=== PATIENT | male | born 1960 | race Caucasian/White ===

== ENCOUNTER 2021-01-30 20:38 | Inpatient (IN) | payer SELFPAY ==
[~2021-01-30] VITALS: Ht 177.8 cm; Wt 154.5 kg
[2021-01-30] MEDS ORDERED: SODIUM CHLORIDE 0.9% 1,000ML IVBOLUS ONE (21:00)
[2021-01-30 21:36] LABS: BASOPHILS % (AUTO) 0 % (0-1); EOSINOPHILS % (AUTO) 0 % (1-7); LYMPHOCYTES % (AUTO) 6 % (22-44); MEAN CORPUSCULAR HEMOGLOBIN 31.3 pg (27.5-34.5); MEAN CORPUSCULAR HGB CONC 34.5 g/dL (33.2-36.2); MEAN PLATELET VOLUME 6.2 fL (7.4-10.4); MONOCYTES % (AUTO) 8 % (2-9); NEUTROPHILS % (AUTO) 85 % (42-75); PLATELET COUNT 445 x10^3/uL (130-400); RED CELL DISTRIBUTION WIDTH 14.3 % (9.4-14.8)
[2021-01-30 21:48] LABS: ALBUMIN 1.7 g/dL (3.4-5.0); ANION GAP 9 mmol/L (5-15); CALCIUM 7.8 mg/dL (8.5-10.1); CHLORIDE 85 mmol/L (98-107); CREATININE 1.44 mg/dL (0.7-1.3)
--- NOTE | 2021-01-30 22:07 | NUR ---
Pt ambulatory to room from lobby at this time.
[2021-01-30] MEDS ORDERED: PIPERACILLIN/TAZO 4.5 GM in DEXTROSE 5% 100 ML IVPB ONE (22:30)
[2021-01-30] MEDS ORDERED: VANCOMYCIN PER PHARMACY MC PRN (22:30)
[2021-01-30] MEDS ORDERED: SODIUM CHLORIDE 0.9% 1,000 ML IV ONE (22:30)
[2021-01-30] MEDS ORDERED: OMNIPAQUE 350 MG/ML, 100ML BOTTLE ONE (23:00)
[2021-01-30] MEDS ORDERED: VANCOMYCIN 3,000 MG in SODIUM CHLORIDE 0.9% 500 ML IV ONE (23:00)
[2021-01-31] MEDS ORDERED: VANCOMYCIN PER PHARMACY MC SCH
[2021-01-31] MEDS ORDERED: ONDANSETRON 2MG/ML, 2ML IV PRN
[2021-01-31] MEDS ORDERED: MELATONIN 5 MG TABLET PO PRN
[2021-01-31] MEDS ORDERED: LABETALOL 5MG/ML, 20ML IVPush PRN
[2021-01-31] MEDS ORDERED: PHARMACY MAY ADJ FOR RENAL FX MC SCH
[2021-01-31] MEDS ORDERED: PHARMACOKINETIC MONITORING MC PRN (00:30)
[2021-01-31] MEDS: ENOXAPARIN 40 MG/0.4 ML SQ SCH (01:29)
[2021-01-31 01:30] VITALS: BP 106/69
[2021-01-31 02:19] LABS: ANION GAP 9 mmol/L (5-15); CALCIUM 7.7 mg/dL (8.5-10.1); CHLORIDE 87 mmol/L (98-107); CREATININE 1.31 mg/dL (0.7-1.3)
[2021-01-31 04:37] LABS: BASOPHILS % (AUTO) 0 % (0-1); EOSINOPHILS % (AUTO) 0 % (1-7); LYMPHOCYTES % (AUTO) 7 % (22-44); MEAN CORPUSCULAR HEMOGLOBIN 31.5 pg (27.5-34.5); MEAN CORPUSCULAR HGB CONC 33.9 g/dL (33.2-36.2); MEAN PLATELET VOLUME 6.1 fL (7.4-10.4); MONOCYTES % (AUTO) 7 % (2-9); NEUTROPHILS % (AUTO) 85 % (42-75); PLATELET COUNT 339 x10^3/uL (130-400); RED BLOOD COUNT 4.38 x10^6/uL (4.38-5.82); RED CELL DISTRIBUTION WIDTH 14.6 % (9.4-14.8)
[2021-01-31 04:50] LABS: ANION GAP 8 mmol/L (5-15); CALCIUM 7.2 mg/dL (8.5-10.1); CHLORIDE 89 mmol/L (98-107); CREATININE 1.27 mg/dL (0.7-1.3)
[2021-01-31 06:04] VITALS: BP 95/60
[2021-01-31] MEDS: CEFEPIME 2 GM in DEXTROSE 5% 100 ML IV SCH ×3 (06:27→21:38)
[2021-01-31] MEDS ORDERED: LACTATED RINGERS 1,000 ML IV SCH (06:30)
[2021-01-31] MEDS: INSULIN REGULAR 100 UNITS/ML, 3ML VIAL SQ-INSULIN SCH ×4 (07:00→16:00)
[2021-01-31 07:32] VITALS: BP 103/68
[2021-01-31 08:28] LABS: POTASSIUM,URINE RANDOM 43 mmol/L
[2021-01-31 08:31] LABS: CHLORIDE,URINE RANDOM < 10 mmol/L; SODIUM,URINE RANDOM < 5 mmol/L
[2021-01-31 09:40] LABS: BASOPHILS % (AUTO) 1 % (0-1); EOSINOPHILS % (AUTO) 0 % (1-7); LYMPHOCYTES % (AUTO) 7 % (22-44); MEAN CORPUSCULAR HEMOGLOBIN 31.2 pg (27.5-34.5); MEAN PLATELET VOLUME 6.3 fL (7.4-10.4); MONOCYTES % (AUTO) 11 % (2-9); NEUTROPHILS % (AUTO) 81 % (42-75); PLATELET COUNT 329 x10^3/uL (130-400); RED CELL DISTRIBUTION WIDTH 14.3 % (9.4-14.8)
[2021-01-31 09:52] LABS: CALCIUM 7.1 mg/dL (8.5-10.1); CHLORIDE 92 mmol/L (98-107)
[2021-01-31 09:52] LABS: MICROSCOPIC NOT IND
[2021-01-31 09:55] LABS: ANION GAP 5 mmol/L (5-15); CREATININE 1.22 mg/dL (0.7-1.3)
[2021-01-31] MEDS: SODIUM CHLORIDE 0.9% 1,000 ML IV SCH ×2 (14:15)
[2021-01-31 15:04] VITALS: BP 106/65
[2021-01-31] MEDS: ACETAMINOPHEN 325 MG TABLET PO PRN (17:30)
[2021-01-31] MEDS: VANCOMYCIN 2,000 MG in SODIUM CHLORIDE 0.9% 500 ML IV SCH (18:22)
[2021-01-31] MEDS ORDERED: CALCIUM CARBONATE 500 MG TAB.CHEW PO PRN (18:30)
[2021-01-31 20:19] VITALS: BP 98/62
[2021-02-01 00:32] VITALS: BP 106/65
[2021-02-01] MEDS: ENOXAPARIN 40 MG/0.4 ML SQ SCH ×2 (00:50→18:05)
[2021-02-01] MEDS: CEFEPIME 2 GM in DEXTROSE 5% 100 ML IV SCH ×3 (05:33→21:43)
[2021-02-01] MEDS ORDERED: PANTOPRAZOLE 40 MG IV IVPush SCH (09:00)
[2021-02-01] MEDS: SUCRALFATE 1 GM/10 ML UDC PO SCH ×3 (10:37→21:43)
[2021-02-01] MEDS: VANCOMYCIN 2,000 MG in SODIUM CHLORIDE 0.9% 500 ML IV SCH (12:01)
[2021-02-01 15:17] VITALS: BP 98/57
[2021-02-01] MEDS: PANTOPRAZOLE 40MG TABLET PO SCH (18:05)
[2021-02-01] MEDS: D5%-0.2% NACL 1,000 ML IV SCH (18:29)
[2021-02-01] MEDS: ACETAMINOPHEN 325 MG TABLET PO PRN (20:14)
[2021-02-01 21:48] VITALS: BP 83/50
[2021-02-01] MEDS ORDERED: D5%-0.2% NACL 500 ML IV ONE (22:30)
[2021-02-01 23:18] VITALS: BP 84/40
[2021-02-01] MEDS ORDERED: SODIUM CHLORIDE 0.9%, 500ML IVBOLUS ONE (23:30)
[2021-02-01 23:59] VITALS: BP 109/66
[2021-02-02] MEDS: D5%-0.2% NACL 1,000 ML IV SCH (02:53)
[2021-02-02 03:00] VITALS: BP 99/67
[2021-02-02 05:50] LABS: VANCOMYCIN,TROUGH 20.9 mcg/mL (5.0-10.0)
[2021-02-02] MEDS: ENOXAPARIN 40 MG/0.4 ML SQ SCH ×2 (05:51→17:52)
[2021-02-02] MEDS: PANTOPRAZOLE 40MG TABLET PO SCH ×2 (05:52→16:30)
[2021-02-02] MEDS: CEFEPIME 2 GM in DEXTROSE 5% 100 ML IV SCH ×3 (05:52→22:23)
[2021-02-02] MEDS: SUCRALFATE 1 GM/10 ML UDC PO SCH ×4 (05:52→21:00)
[2021-02-02] MEDS: ACETAMINOPHEN 325 MG TABLET PO PRN (05:52)
[2021-02-02] MEDS: VANCOMYCIN 2,000 MG in SODIUM CHLORIDE 0.9% 500 ML IV SCH (06:36)
[2021-02-02 06:49] VITALS: BP 106/62
[2021-02-02 14:09] VITALS: BP 109/67
[2021-02-02] MEDS: morphine SULFATE 10 MG/ML, 1ML IV PRN (16:31)
[2021-02-02 20:32] VITALS: BP 91/58
[2021-02-02] MEDS: POLYETHYLENE GLYCOL 17 GM PACKET PO PRN (22:22)
[2021-02-03] MEDS: VANCOMYCIN 2,000 MG in SODIUM CHLORIDE 0.9% 500 ML IV SCH ×2 (00:02→18:32)
[2021-02-03 01:42] VITALS: BP 100/60
[2021-02-03] MEDS: morphine SULFATE 10 MG/ML, 1ML IV PRN (03:07)
[2021-02-03] MEDS: ACETAMINOPHEN 325 MG TABLET PO PRN ×3 (03:07→22:25)
[2021-02-03] MEDS: CEFEPIME 2 GM in DEXTROSE 5% 100 ML IV SCH ×3 (06:07→22:24)
[2021-02-03 06:08] LABS: BASOPHILS % (AUTO) 3 % (0-1); EOSINOPHILS % (AUTO) 5 % (1-7); LYMPHOCYTES % (AUTO) 23 % (22-44); MEAN CORPUSCULAR HEMOGLOBIN 32.4 pg (27.5-34.5); MEAN CORPUSCULAR HGB CONC 34.4 g/dL (33.2-36.2); MEAN PLATELET VOLUME 6.3 fL (7.4-10.4); MONOCYTES % (AUTO) 10 % (2-9); NEUTROPHILS % (AUTO) 59 % (42-75); PLATELET COUNT 266 x10^3/uL (130-400); RED BLOOD COUNT 3.37 x10^6/uL (4.38-5.82); RED CELL DISTRIBUTION WIDTH 14.4 % (9.4-14.8)
[2021-02-03 06:14] LABS: CHLORIDE 103 mmol/L (98-107)
[2021-02-03 06:19] LABS: ALANINE AMINOTRANSFERASE 9 U/L (12-78); ALBUMIN 1.1 g/dL (3.4-5.0); ALKALINE PHOSPHATASE 83 U/L (45-117); ANION GAP 6 mmol/L (5-15); BILIRUBIN,TOTAL 0.3 mg/dL (0.2-1.0); CALCIUM 6.7 mg/dL (8.5-10.1); CREATININE 0.98 mg/dL (0.7-1.3); TOTAL PROTEIN 5.9 g/dL (6.4-8.2)
[2021-02-03 08:45] VITALS: BP 99/62
[2021-02-03] MEDS: ENOXAPARIN 40 MG/0.4 ML SQ SCH ×2 (10:41→20:41)
[2021-02-03] MEDS: SUCRALFATE 1 GM/10 ML UDC PO SCH ×4 (10:41→20:40)
[2021-02-03] MEDS: PANTOPRAZOLE 40MG TABLET PO SCH ×2 (10:42→16:52)
[2021-02-03] MEDS: METOCLOPRAMIDE 5 MG/ML, 2ML IVPush SCH ×3 (10:42→20:41)
[2021-02-03] MEDS: POLYETHYLENE GLYCOL 17 GM PACKET PO PRN (10:46)
[2021-02-03 15:24] VITALS: BP 92/58
[2021-02-03] MEDS ORDERED: POLYETHYLENE GLYCOL 17 GM PACKET PO SCH (16:00)
[2021-02-03] MEDS: MORPHINE SULFATE 4 MG/ML, 1ML IVPush PRN (18:16)
[2021-02-03 19:46] VITALS: BP 85/49
[2021-02-04 00:47] VITALS: BP 101/61
[2021-02-04] MEDS: METOCLOPRAMIDE 5 MG/ML, 2ML IVPush SCH ×2 (03:35→08:17)
[2021-02-04] MEDS: ACETAMINOPHEN 325 MG TABLET PO PRN ×3 (03:35→20:55)
[2021-02-04] MEDS: MORPHINE SULFATE 4 MG/ML, 1ML IVPush PRN ×2 (03:36→11:43)
[2021-02-04] MEDS: CEFEPIME 2 GM in DEXTROSE 5% 100 ML IV SCH (06:13)
[2021-02-04] MEDS: PANTOPRAZOLE 40MG TABLET PO SCH ×2 (06:13→15:54)
[2021-02-04 07:45] VITALS: BP 103/58
[2021-02-04] MEDS: SUCRALFATE 1 GM/10 ML UDC PO SCH ×4 (08:17→20:55)
[2021-02-04] MEDS: POLYETHYLENE GLYCOL 17 GM PACKET PO SCH (08:17)
[2021-02-04] MEDS: ENOXAPARIN 40 MG/0.4 ML SQ SCH ×2 (08:17→20:55)
[2021-02-04] MEDS: VANCOMYCIN 2,000 MG in SODIUM CHLORIDE 0.9% 500 ML IV SCH (11:42)
[2021-02-04] MEDS ORDERED: DIPHENHYDRAMINE 25 MG CAPSULE PO PRN (13:30)
[2021-02-04] MEDS: CIPROFLOXACIN 500 MG TABLET PO SCH (14:15)
[2021-02-04 14:19] VITALS: BP 110/67
[2021-02-04 20:14] VITALS: BP 89/50
[2021-02-05 01:48] VITALS: BP 90/62
[2021-02-05] MEDS: CIPROFLOXACIN 500 MG TABLET PO SCH ×2 (01:48→14:05)
[2021-02-05] MEDS: VANCOMYCIN 2,000 MG in SODIUM CHLORIDE 0.9% 500 ML IV SCH (06:16)
[2021-02-05] MEDS: PANTOPRAZOLE 40MG TABLET PO SCH ×2 (06:22→17:01)
[2021-02-05] MEDS: SUCRALFATE 1 GM/10 ML UDC PO SCH ×4 (06:22→21:10)
[2021-02-05 08:20] VITALS: BP 109/49
[2021-02-05] MEDS: POLYETHYLENE GLYCOL 17 GM PACKET PO SCH (09:00)
[2021-02-05] MEDS: ENOXAPARIN 40 MG/0.4 ML SQ SCH ×2 (09:36→21:10)
[2021-02-05 14:00] VITALS: BP 102/55
[2021-02-05] MEDS: DIPHENHYDRAMINE 25 MG CAPSULE PO SCH ×2 (17:00→23:20)
[2021-02-05] MEDS: MORPHINE SULFATE 4 MG/ML, 1ML IVPush PRN (18:01)
[2021-02-05] MEDS: ACETAMINOPHEN 325 MG TABLET PO PRN (18:08)
[2021-02-05 20:18] VITALS: BP 104/60
[2021-02-05] MEDS ORDERED: DIPHENHYDRAMINE 50 MG CAPSULE ONE (23:14)
[2021-02-06 01:21] VITALS: BP 94/56
[2021-02-06 05:35] LABS: ALBUMIN 1.1 g/dL (3.4-5.0); ANION GAP 3 mmol/L (5-15); CALCIUM 7.2 mg/dL (8.5-10.1); CHLORIDE 107 mmol/L (98-107)
[2021-02-06 05:38] LABS: ALANINE AMINOTRANSFERASE 10 U/L (12-78); ALKALINE PHOSPHATASE 91 U/L (45-117); BILIRUBIN,TOTAL 0.3 mg/dL (0.2-1.0); CREATININE 1.06 mg/dL (0.7-1.3); TOTAL PROTEIN 6.4 g/dL (6.4-8.2)
[2021-02-06] MEDS: SUCRALFATE 1 GM/10 ML UDC PO SCH ×4 (05:56→20:13)
[2021-02-06] MEDS: DIPHENHYDRAMINE 25 MG CAPSULE PO SCH ×4 (05:57→23:36)
[2021-02-06] MEDS: PANTOPRAZOLE 40MG TABLET PO SCH ×2 (05:57→17:06)
[2021-02-06 07:08] VITALS: BP 113/69
[2021-02-06] MEDS: POLYETHYLENE GLYCOL 17 GM PACKET PO SCH (08:49)
[2021-02-06] MEDS: ENOXAPARIN 40 MG/0.4 ML SQ SCH ×2 (08:49→20:13)
[2021-02-06 10:00] LABS: BASOPHILS % (AUTO) 1 % (0-1); EOSINOPHILS % (AUTO) 5 % (1-7); LYMPHOCYTES % (AUTO) 15 % (22-44); MEAN CORPUSCULAR HEMOGLOBIN 31.3 pg (27.5-34.5); MEAN PLATELET VOLUME 6.1 fL (7.4-10.4); MONOCYTES % (AUTO) 7 % (2-9); NEUTROPHILS % (AUTO) 73 % (42-75); PLATELET COUNT 307 x10^3/uL (130-400); RED BLOOD COUNT 3.66 x10^6/uL (4.38-5.82); RED CELL DISTRIBUTION WIDTH 14.9 % (9.4-14.8)
[2021-02-06] MEDS: MORPHINE SULFATE 4 MG/ML, 1ML IVPush PRN (10:44)
[2021-02-06] MEDS: ACETAMINOPHEN 325 MG TABLET PO PRN (10:44)
[2021-02-06 14:26] VITALS: BP 116/73
[2021-02-06] MEDS: VANCOMYCIN 2,000 MG in SODIUM CHLORIDE 0.9% 500 ML IV SCH (14:29)
[2021-02-06 20:38] VITALS: BP 127/66
[2021-02-07 01:57] VITALS: BP 116/47
[2021-02-07] MEDS: DIPHENHYDRAMINE 25 MG CAPSULE PO SCH ×4 (06:30→23:16)
[2021-02-07] MEDS: PANTOPRAZOLE 40MG TABLET PO SCH ×2 (06:31→16:13)
[2021-02-07] MEDS: SUCRALFATE 1 GM/10 ML UDC PO SCH ×4 (06:31→21:45)
[2021-02-07 09:00] VITALS: BP 137/58
[2021-02-07] MEDS: POLYETHYLENE GLYCOL 17 GM PACKET PO SCH (09:00)
[2021-02-07] MEDS: ENOXAPARIN 40 MG/0.4 ML SQ SCH ×2 (10:44→21:46)
[2021-02-07 12:52] VITALS: BP 103/63
[2021-02-07 14:26] VITALS: BP 94/55
[2021-02-07 20:10] VITALS: BP 117/66
[2021-02-07] MEDS: ACETAMINOPHEN 325 MG TABLET PO PRN (21:45)
[2021-02-07] MEDS: MORPHINE SULFATE 4 MG/ML, 1ML IVPush PRN (21:46)
[2021-02-08 00:40] VITALS: BP 124/67
[2021-02-08] MEDS: VANCOMYCIN 2,000 MG in SODIUM CHLORIDE 0.9% 500 ML IV SCH (03:21)
[2021-02-08] MEDS: SUCRALFATE 1 GM/10 ML UDC PO SCH ×4 (06:09→21:53)
[2021-02-08] MEDS: DIPHENHYDRAMINE 25 MG CAPSULE PO SCH ×4 (06:09→23:09)
[2021-02-08] MEDS: PANTOPRAZOLE 40MG TABLET PO SCH ×2 (06:09→17:03)
[2021-02-08] MEDS: POLYETHYLENE GLYCOL 17 GM PACKET PO SCH (09:00)
[2021-02-08] MEDS: ENOXAPARIN 40 MG/0.4 ML SQ SCH ×2 (09:37→21:53)
[2021-02-08 09:39] VITALS: BP 105/66
[2021-02-08] MEDS ORDERED: DIPHENHYDRAMINE 50 MG CAPSULE ONE (11:04)
[2021-02-08] MEDS: ACETAMINOPHEN 325 MG TABLET PO PRN (11:37)
[2021-02-08] MEDS: MORPHINE SULFATE 4 MG/ML, 1ML IVPush PRN (11:38)
[2021-02-08 15:48] VITALS: BP 91/47
[2021-02-08 20:20] VITALS: BP 128/72
[2021-02-09 01:05] VITALS: BP 119/68
[2021-02-09] MEDS: PANTOPRAZOLE 40MG TABLET PO SCH ×2 (05:37→16:47)
[2021-02-09] MEDS: DIPHENHYDRAMINE 25 MG CAPSULE PO SCH ×4 (05:38→23:25)
[2021-02-09] MEDS: SUCRALFATE 1 GM/10 ML UDC PO SCH ×4 (07:34→20:40)
[2021-02-09 08:08] VITALS: BP 102/61
[2021-02-09 08:33] LABS: BASOPHILS % (AUTO) 1 % (0-1); EOSINOPHILS % (AUTO) 5 % (1-7); LYMPHOCYTES % (AUTO) 23 % (22-44); MEAN CORPUSCULAR HEMOGLOBIN 31.6 pg (27.5-34.5); MEAN CORPUSCULAR HGB CONC 33.6 g/dL (33.2-36.2); MEAN PLATELET VOLUME 6.4 fL (7.4-10.4); MONOCYTES % (AUTO) 10 % (2-9); NEUTROPHILS % (AUTO) 61 % (42-75); PLATELET COUNT 374 x10^3/uL (130-400); RED CELL DISTRIBUTION WIDTH 14.7 % (9.4-14.8)
[2021-02-09 08:35] LABS: CHLORIDE 108 mmol/L (98-107)
[2021-02-09 08:47] LABS: ALANINE AMINOTRANSFERASE 10 U/L (12-78); ALBUMIN 1.5 g/dL (3.4-5.0); ALKALINE PHOSPHATASE 99 U/L (45-117); ANION GAP 7 mmol/L (5-15); BILIRUBIN,TOTAL 0.4 mg/dL (0.2-1.0); CALCIUM 8.3 mg/dL (8.5-10.1); CREATININE 1.16 mg/dL (0.7-1.3)
[2021-02-09] MEDS: POLYETHYLENE GLYCOL 17 GM PACKET PO SCH (09:00)
[2021-02-09] MEDS: ENOXAPARIN 40 MG/0.4 ML SQ SCH ×2 (09:11→20:43)
[2021-02-09] MEDS: AMPICILLIN/SULBACTAM 3 GM in SODIUM CHLORIDE 0.9% 100 ML IV SCH ×2 (12:53→20:40)
[2021-02-09 13:28] VITALS: BP 108/63
[2021-02-09 19:10] VITALS: BP 106/62
[2021-02-09] MEDS: MORPHINE SULFATE 4 MG/ML, 1ML IVPush PRN (22:31)
[2021-02-09] MEDS: ACETAMINOPHEN 325 MG TABLET PO PRN (22:31)
[2021-02-10 00:28] VITALS: BP 116/67
[2021-02-10] MEDS: AMPICILLIN/SULBACTAM 3 GM in SODIUM CHLORIDE 0.9% 100 ML IV SCH ×4 (03:05→20:06)
[2021-02-10 04:12] LABS: BASOPHILS % (AUTO) 1 % (0-1); EOSINOPHILS % (AUTO) 7 % (1-7); LYMPHOCYTES % (AUTO) 28 % (22-44); MEAN CORPUSCULAR HEMOGLOBIN 31.8 pg (27.5-34.5); MEAN CORPUSCULAR HGB CONC 33.7 g/dL (33.2-36.2); MEAN PLATELET VOLUME 6.5 fL (7.4-10.4); MONOCYTES % (AUTO) 12 % (2-9); NEUTROPHILS % (AUTO) 53 % (42-75); PLATELET COUNT 325 x10^3/uL (130-400); RED BLOOD COUNT 3.11 x10^6/uL (4.38-5.82); RED CELL DISTRIBUTION WIDTH 14.9 % (9.4-14.8)
[2021-02-10 04:13] LABS: ALBUMIN 1.3 g/dL (3.4-5.0); ANION GAP 5 mmol/L (5-15); CALCIUM 7.2 mg/dL (8.5-10.1); CHLORIDE 106 mmol/L (98-107)
[2021-02-10 04:22] LABS: % IRON SATURATION 23 % (20-55); ALANINE AMINOTRANSFERASE 9 U/L (12-78); ALKALINE PHOSPHATASE 88 U/L (45-117); BILIRUBIN,TOTAL 0.3 mg/dL (0.2-1.0); CREATININE 1.31 mg/dL (0.7-1.3); IRON LEVEL 41 mcg/dL (65-175); TOTAL IRON BINDING CAPACITY 176 mcg/dL (250-450); TOTAL PROTEIN 6.3 g/dL (6.4-8.2)
[2021-02-10] MEDS: PANTOPRAZOLE 40MG TABLET PO SCH ×2 (05:09→15:58)
[2021-02-10] MEDS: DIPHENHYDRAMINE 25 MG CAPSULE PO SCH ×4 (05:09→23:43)
[2021-02-10 07:31] VITALS: BP 91/51
[2021-02-10] MEDS: POLYETHYLENE GLYCOL 17 GM PACKET PO SCH (08:16)
[2021-02-10] MEDS: ENOXAPARIN 40 MG/0.4 ML SQ SCH ×2 (08:18→20:06)
[2021-02-10] MEDS: SUCRALFATE 1 GM/10 ML UDC PO SCH ×4 (08:18→20:06)
[2021-02-10 12:36] VITALS: BP 104/65
[2021-02-10 17:07] VITALS: BP 110/62
[2021-02-10 19:28] VITALS: BP 111/67
[2021-02-11 00:50] VITALS: BP 96/60
[2021-02-11] MEDS: AMPICILLIN/SULBACTAM 3 GM in SODIUM CHLORIDE 0.9% 100 ML IV SCH ×2 (02:05→08:21)
[2021-02-11] MEDS: PANTOPRAZOLE 40MG TABLET PO SCH (05:11)
[2021-02-11] MEDS: DIPHENHYDRAMINE 25 MG CAPSULE PO SCH ×2 (05:11→11:37)
[2021-02-11 07:27] LABS: BASOPHILS % (AUTO) 1 % (0-1); EOSINOPHILS % (AUTO) 7 % (1-7); LYMPHOCYTES % (AUTO) 24 % (22-44); MEAN CORPUSCULAR HGB CONC 32.8 g/dL (33.2-36.2); MEAN PLATELET VOLUME 6.6 fL (7.4-10.4); MONOCYTES % (AUTO) 11 % (2-9); NEUTROPHILS % (AUTO) 58 % (42-75); PLATELET COUNT 330 x10^3/uL (130-400); RED BLOOD COUNT 3.22 x10^6/uL (4.38-5.82); RED CELL DISTRIBUTION WIDTH 15.1 % (9.4-14.8)
[2021-02-11 07:31] VITALS: BP 117/60
[2021-02-11 07:40] LABS: ALANINE AMINOTRANSFERASE 9 U/L (12-78); ALBUMIN 1.4 g/dL (3.4-5.0); ANION GAP 5 mmol/L (5-15); CALCIUM 7.6 mg/dL (8.5-10.1); CHLORIDE 107 mmol/L (98-107); CREATININE 1.19 mg/dL (0.7-1.3)
[2021-02-11 07:47] LABS: ALKALINE PHOSPHATASE 91 U/L (45-117); BILIRUBIN,TOTAL 0.3 mg/dL (0.2-1.0); FREE T4 (FREE THYROXINE) 0.95 ng/dL (0.76-1.46); TOTAL PROTEIN 6.6 g/dL (6.4-8.2)
[2021-02-11] MEDS: ENOXAPARIN 40 MG/0.4 ML SQ SCH (08:21)
[2021-02-11] MEDS: SUCRALFATE 1 GM/10 ML UDC PO SCH ×2 (08:21→11:37)
[2021-02-11] MEDS: POLYETHYLENE GLYCOL 17 GM PACKET PO SCH (08:26)
[2021-02-11 08:32] LABS: HCT (SEDRATE) 30.4 % (39.2-51.8)
[2021-02-11] MEDS ORDERED: AZITHROMYCIN 500 MG TABLET PO SCH (09:00)
[2021-02-11] MEDS ORDERED: AZIT500T10 PO (11:05)
[2021-02-11] MEDS ORDERED: DALBAVANCIN HCL 1,500 MG in DEXTROSE 5% 500 ML IV ONE (12:00)
[2021-02-11 14:40] VITALS: BP 105/65
== END 2021-02-11 16:10 | disposition home or self-care (01) | DRG 872 ==
LOC: ED 23:20 → EDIP 23:28 → 4EST 01-31 00:19
PROVIDERS: ADMIT Internal Medicine; ATTEND Family Medicine
DX: A41.9 Sepsis, unspecified organism (principal); L03.116 Cellulitis of left lower limb; E87.1 Hypo-osmolality and hyponatremia; Z68.41 Body mass index [BMI] 40.0-44.9, adult; N17.9 Acute kidney failure, unspecified; L97.929 Non-pressure chronic ulcer of unspecified part of left lower leg with unspecified severity; Z66 Do not resuscitate; E66.01 Morbid (severe) obesity due to excess calories; K21.9 Gastro-esophageal reflux disease without esophagitis; K59.00 Constipation, unspecified; R60.9 Edema, unspecified; I89.0 Lymphedema, not elsewhere classified; Z88.8 Allergy status to other drugs, medicaments and biological substances; Z20.822 Contact with and (suspected) exposure to COVID-19; D64.9 Anemia, unspecified; F42.9 Obsessive-compulsive disorder, unspecified; L27.0 Generalized skin eruption due to drugs and medicaments taken internally
CPT/HCPCS: 36415; 74018; 80048; 80053; 80202; 81003; 82040; 82436; 82565; 82607; 82962; 83036; 83540; 83550; 83605; 83735; 83930; 83935; 84133; 84145; 84295; 84300; 84439; 84443; 85025; 85651; 86140; 87040; 87070; 87077; 87186; 87205; 93005; 93922; 93970; 99285; G0378; J0295; J1650; J2405; J2543; J3370; Q9967; C9113; J0875; J2270; J2765; J7030; J7040; J7060; Q0163

== ENCOUNTER 2021-02-13 13:50 | Outpatient (CLI) | payer SELFPAY ==
[~2021-02-13 13:50] MED LIST: AZIT500T10 PO
== END 2021-02-13 23:59 | disposition home or self-care (01) ==
LOC: WOUND 13:50
PROVIDERS: ATTEND Internal Medicine
DX: I87.312 Chronic venous hypertension (idiopathic) with ulcer of left lower extremity (principal); L97.522 Non-pressure chronic ulcer of other part of left foot with fat layer exposed; L97.822 Non-pressure chronic ulcer of other part of left lower leg with fat layer exposed; L97.222 Non-pressure chronic ulcer of left calf with fat layer exposed; L03.116 Cellulitis of left lower limb; K21.9 Gastro-esophageal reflux disease without esophagitis; I89.0 Lymphedema, not elsewhere classified; E66.01 Morbid (severe) obesity due to excess calories; F42.9 Obsessive-compulsive disorder, unspecified; Z68.42 Body mass index [BMI] 45.0-49.9, adult; Z98.890 Other specified postprocedural states
CPT/HCPCS: 97597; 97598; 99215

== ENCOUNTER 2021-02-15 14:19 | Outpatient (CLI) | payer SELFPAY | END 2021-02-15 23:59 | disposition home or self-care (01) | LOC: WOUND 14:19 | PROVIDERS: ATTEND Internal Medicine | DX: I87.312 Chronic venous hypertension (idiopathic) with ulcer of left lower extremity (principal); L03.116 Cellulitis of left lower limb; L97.222 Non-pressure chronic ulcer of left calf with fat layer exposed; K21.9 Gastro-esophageal reflux disease without esophagitis; I89.0 Lymphedema, not elsewhere classified; E66.01 Morbid (severe) obesity due to excess calories; F42.9 Obsessive-compulsive disorder, unspecified; Z68.42 Body mass index [BMI] 45.0-49.9, adult | CPT/HCPCS: 99213 ==

== ENCOUNTER 2021-02-19 11:27 | Outpatient (CLI) | payer SELFPAY | END 2021-02-19 23:59 | disposition home or self-care (01) | LOC: WOUND 11:27 | PROVIDERS: ATTEND Internal Medicine Cardiovascular Disease | DX: I87.312 Chronic venous hypertension (idiopathic) with ulcer of left lower extremity (principal); L97.222 Non-pressure chronic ulcer of left calf with fat layer exposed; L03.116 Cellulitis of left lower limb; K21.9 Gastro-esophageal reflux disease without esophagitis; E66.01 Morbid (severe) obesity due to excess calories; F42.9 Obsessive-compulsive disorder, unspecified; Z68.42 Body mass index [BMI] 45.0-49.9, adult; Z98.890 Other specified postprocedural states | CPT/HCPCS: 99215 ==

== ENCOUNTER 2021-02-22 09:03 | Outpatient (CLI) | payer SELFPAY | END 2021-02-22 23:59 | disposition home or self-care (01) | LOC: WOUND 09:03 | PROVIDERS: ATTEND Internal Medicine | DX: I87.312 Chronic venous hypertension (idiopathic) with ulcer of left lower extremity (principal); L97.222 Non-pressure chronic ulcer of left calf with fat layer exposed; L97.822 Non-pressure chronic ulcer of other part of left lower leg with fat layer exposed; L97.522 Non-pressure chronic ulcer of other part of left foot with fat layer exposed; L03.116 Cellulitis of left lower limb; K21.9 Gastro-esophageal reflux disease without esophagitis; E66.01 Morbid (severe) obesity due to excess calories; F42.9 Obsessive-compulsive disorder, unspecified; I89.0 Lymphedema, not elsewhere classified; Z98.890 Other specified postprocedural states; Z88.8 Allergy status to other drugs, medicaments and biological substances; Z20.822 Contact with and (suspected) exposure to COVID-19; Z68.41 Body mass index [BMI] 40.0-44.9, adult | CPT/HCPCS: 97597; 97598 ==

== ENCOUNTER 2021-02-26 11:11 | Outpatient (CLI) | payer SELFPAY | END 2021-02-26 23:59 | disposition home or self-care (01) | LOC: WOUND 11:11 | PROVIDERS: ATTEND Internal Medicine Cardiovascular Disease | DX: I87.312 Chronic venous hypertension (idiopathic) with ulcer of left lower extremity (principal); L97.222 Non-pressure chronic ulcer of left calf with fat layer exposed; L97.822 Non-pressure chronic ulcer of other part of left lower leg with fat layer exposed; L97.522 Non-pressure chronic ulcer of other part of left foot with fat layer exposed; L03.116 Cellulitis of left lower limb; K21.9 Gastro-esophageal reflux disease without esophagitis; E66.01 Morbid (severe) obesity due to excess calories; F42.9 Obsessive-compulsive disorder, unspecified; Z98.890 Other specified postprocedural states; Z88.8 Allergy status to other drugs, medicaments and biological substances; Z20.822 Contact with and (suspected) exposure to COVID-19; Z68.41 Body mass index [BMI] 40.0-44.9, adult | CPT/HCPCS: 99213 ==

== ENCOUNTER 2021-03-01 10:59 | Outpatient (CLI) | payer SELFPAY | END 2021-03-01 23:59 | disposition home or self-care (01) | LOC: WOUND 10:59 | PROVIDERS: ATTEND Internal Medicine | DX: I87.312 Chronic venous hypertension (idiopathic) with ulcer of left lower extremity (principal); L97.222 Non-pressure chronic ulcer of left calf with fat layer exposed; L97.822 Non-pressure chronic ulcer of other part of left lower leg with fat layer exposed; L97.522 Non-pressure chronic ulcer of other part of left foot with fat layer exposed; L03.116 Cellulitis of left lower limb; K21.9 Gastro-esophageal reflux disease without esophagitis; E66.01 Morbid (severe) obesity due to excess calories; F42.9 Obsessive-compulsive disorder, unspecified; I89.0 Lymphedema, not elsewhere classified; Z98.890 Other specified postprocedural states; Z88.8 Allergy status to other drugs, medicaments and biological substances; Z20.822 Contact with and (suspected) exposure to COVID-19; Z68.41 Body mass index [BMI] 40.0-44.9, adult | CPT/HCPCS: 99214 ==

== ENCOUNTER 2021-03-04 12:39 | Outpatient (CLI) | payer SELFPAY | END 2021-03-04 23:59 | disposition home or self-care (01) | LOC: WOUND 12:39 | PROVIDERS: ATTEND Internal Medicine | DX: I87.312 Chronic venous hypertension (idiopathic) with ulcer of left lower extremity (principal); L97.222 Non-pressure chronic ulcer of left calf with fat layer exposed; L97.822 Non-pressure chronic ulcer of other part of left lower leg with fat layer exposed; L97.522 Non-pressure chronic ulcer of other part of left foot with fat layer exposed; L03.116 Cellulitis of left lower limb; K21.9 Gastro-esophageal reflux disease without esophagitis; E66.01 Morbid (severe) obesity due to excess calories; F42.9 Obsessive-compulsive disorder, unspecified; I89.0 Lymphedema, not elsewhere classified; Z98.890 Other specified postprocedural states; Z88.8 Allergy status to other drugs, medicaments and biological substances; Z20.822 Contact with and (suspected) exposure to COVID-19; Z68.41 Body mass index [BMI] 40.0-44.9, adult | CPT/HCPCS: 99212 ==

== ENCOUNTER → 2021-03-07 | Outpatient (CLI) | payer SELFPAY | END | disposition home or self-care (01) | LOC: WOUND 10:49 | PROVIDERS: ATTEND Podiatrist Foot & Ankle Surgery | DX: I87.312 Chronic venous hypertension (idiopathic) with ulcer of left lower extremity (principal); L97.222 Non-pressure chronic ulcer of left calf with fat layer exposed; L97.822 Non-pressure chronic ulcer of other part of left lower leg with fat layer exposed; L97.522 Non-pressure chronic ulcer of other part of left foot with fat layer exposed; L03.116 Cellulitis of left lower limb; K21.9 Gastro-esophageal reflux disease without esophagitis; E66.01 Morbid (severe) obesity due to excess calories; F42.9 Obsessive-compulsive disorder, unspecified; I89.0 Lymphedema, not elsewhere classified; Z98.890 Other specified postprocedural states; Z88.8 Allergy status to other drugs, medicaments and biological substances; Z20.822 Contact with and (suspected) exposure to COVID-19; Z68.41 Body mass index [BMI] 40.0-44.9, adult | CPT/HCPCS: 99214 ==

== ENCOUNTER → 2021-03-11 | Outpatient (CLI) | payer SELFPAY | END | disposition home or self-care (01) | LOC: WOUND 08:32 | PROVIDERS: ATTEND Internal Medicine | DX: I87.312 Chronic venous hypertension (idiopathic) with ulcer of left lower extremity (principal); L97.222 Non-pressure chronic ulcer of left calf with fat layer exposed; L97.822 Non-pressure chronic ulcer of other part of left lower leg with fat layer exposed; L97.522 Non-pressure chronic ulcer of other part of left foot with fat layer exposed; L03.116 Cellulitis of left lower limb; K21.9 Gastro-esophageal reflux disease without esophagitis; E66.01 Morbid (severe) obesity due to excess calories; F42.9 Obsessive-compulsive disorder, unspecified; I89.0 Lymphedema, not elsewhere classified; Z98.890 Other specified postprocedural states; Z88.8 Allergy status to other drugs, medicaments and biological substances; Z20.822 Contact with and (suspected) exposure to COVID-19; Z68.41 Body mass index [BMI] 40.0-44.9, adult | CPT/HCPCS: 99212 ==

== ENCOUNTER → 2021-03-14 | Outpatient (CLI) | payer SELFPAY | END | disposition home or self-care (01) | LOC: WOUND 11:42 | PROVIDERS: ATTEND Podiatrist Foot & Ankle Surgery | DX: I87.312 Chronic venous hypertension (idiopathic) with ulcer of left lower extremity (principal); L97.822 Non-pressure chronic ulcer of other part of left lower leg with fat layer exposed; L97.522 Non-pressure chronic ulcer of other part of left foot with fat layer exposed; L97.222 Non-pressure chronic ulcer of left calf with fat layer exposed; L03.116 Cellulitis of left lower limb; I89.0 Lymphedema, not elsewhere classified; K21.9 Gastro-esophageal reflux disease without esophagitis; E66.01 Morbid (severe) obesity due to excess calories; Z68.42 Body mass index [BMI] 45.0-49.9, adult ==